=== PATIENT | male | born 1950 | race African-American/Black ===

== ENCOUNTER → 2016-06-26 | Outpatient (CLI) | payer OTHER ==
[~2016-06-26] MED LIST: REGADENOSON INJ 0.4 MG/5 ML DISP.SYRIN IV ONE
--- NOTE | 2016-06-27 10:16 | RADIOLOGY REPORT ---
STRESS TEST REPORT PATIENT NAME: CONCHIS GUNTER ROOM#: DATE OF SERVICE: 06/26/2016 AGE: 65Y ORDER#: [id number] REFERRING MD: SIRI LORD, [facility] PROCEDURE PERFORMED REST/STRESS SINGLE ISOTOPE CARDIOLITE SPECT IMAGING WITH IV LEXISCAN STRESS AND GATED SPECT IMAGING INDICATION For assessment of chest pains. CLINICAL HISTORY This is a 65-year-old male with no known coronary artery disease but has cardiac risk factors of diabetes, hypertension, tobacco and family history of OR. Current symptomatology includes chest pains. PROCEDURE The patient received IV Lexiscan 0.4 mg infused over ten seconds. The resting heart rate was 78 bpm and increased to 105 bpm at end infusion. The resting BP was 106/67 and increased to 145/69 at end infusion. The patient had symptoms of chest pains in the form of pressure, 3-4/5 intensity. Resting 12 lead EKG showed normal sinus rhythm, 78 bpm, first degree AVB, right axis deviation, mild nonspecific STT changes. At end infusion, no increased STT changes were seen. Myocardial perfusion imaging was performed at rest 60 minutes following injection of 11.55 mCi Cardiolite. Ten seconds after the IV Lexiscan injection, the patient was injected with 36.5 mCi of Cardiolite and flushed. Gated post stress tomographic imaging was performed 60 minutes after stress. FINDINGS The overall quality of the study is good. The left ventricular cavity is noted to be normal in size on both the rest and stress studies. There is no evidence of abnormal transient ischemic dilatation of the left ventricle visually, although computer calculated a TID ratio of 1.19. SPECT images showed small, mild, fixed inferior perfusion defect with no reversible ischemia. Gated SPECT images showed normal motion but reduced contraction of the inferior wall. The left ventricular ejection fraction was calculated to be 61%. IMPRESSION: MYOCARDIAL PERFUSION IMAGING IS MILDLY ABNORMAL. THERE IS A MODERATE AREA OF MILD FIXED PERFUSION DEFECT IN THE INFERIOR WALL WITH REDUCED CONTRACTION BUT NORMAL MOTION. THERE IS NO REVERSIBLE ISCHEMIA. OVERALL LEFT VENTRICULAR SYSTOLIC FUNCTION IS NORMAL AT 61% AND THERE WAS REDUCED CONTRACTION IN THE INFERIOR WALL. NO PRIOR STUDIES FOR COMPARISON. INTERPRETING PHYSICIAN: CONSUELO GIBSON M.D. /: SHIRLEY TT: [id number] ID: [id number] /: [id number] TD: [id number] JOB: [id number] cc:Lidia VILLANUEVA NP, [facility] > MARIA ESTHER
== END ==
LOC: RAD 06:11
PROVIDERS: ATTEND Nurse Practitioner Adult Health
DX: R07.9 Chest pain, unspecified (principal); R06.02 Shortness of breath
CPT/HCPCS: 93017; 78452; A9500; J2785; Q9969

== ENCOUNTER 2017-11-15 17:31 | Emergency (ER) | payer OTHER, MEDICARE, MEDICAID ==
[2017-11-15] MEDS ORDERED: ALBUTEROL SULFATE HFA (90 MCG/PUFF) 8 GM MDI (1 MDI/ER DISP) IH PRN (18:26)
--- NOTE | 2017-11-15 18:27 | ER Document Report ---
ED Medical Screen (RME) - General Chief Complaint: Headache Stated Complaint: NOSEBLEED AND HEADACHE Time Seen by Provider: 11/15/17 18:23 Mode of Arrival: Ambulatory Information source: Patient Notes: This is a 67-year-old man with a history of hypertension, hypothyroidism who presents to the emergency room with headaches for 4 months. Patient also states he has had nosebleeds on and off for the past week. He states that he has been taking gabapentin but is been told by different providers different doses so he stopped taking it. He states that he has been taking ibuprofen as well. He states that the last time he saw his primary care doctor 1 week ago, his blood pressure was low so he was taken off his blood pressure medicine ( nifedipine). He does have an appointment with a neurologist in November for the headaches. He does not report any change in the headaches and they are bandlike and they occur daily. He denies any speech problems, weakness, memory issues. The patient called the office today and was told to come to the emergency room. Medications: Gabapentin 300 mg tablets Atorvastatin 10 mg daily Levothyroxine 0.025 mg daily Nifedipine XL 30 mg tablets daily (which was stopped 1 week ago). TRAVEL OUTSIDE OF THE [place] IN LAST 30 DAYS: No - HPI Onset: Other - Past 4 months Quality of pain: Dull Severity: Mild Pain Level: 1 Associated Symptoms: denies: Chest pain, Shortness of breath Exacerbated by: Denies Relieved by: Denies Similar symptoms previously: Yes Recently seen / treated by doctor: Yes - Related Data Smoking: Cigarettes Frequency of alcohol use: None Drug Abuse: None Allergies/Adverse Reactions: No Known Allergies Allergy (Verified 11/15/17 17:32) Past Medical History - General Information source: Patient - Social History Cigarette use (# per day): Yes - Half a pack per day Chew tobacco use (# tins/day): No Frequency of alcohol use: quite 1 year ago Drug Abuse: Marijuana Lives with: Family Family history: None - Past Medical History Cardiac Medical History: Reports: Hx Hypercholesterolemia, Hx Hypertension Neurological Medical History: Reports: Hx Migraine - 2-3 months Renal/ Medical History: Denies: Hx Peritoneal Dialysis Surgical Hx: Negative Review of Systems - Review of Systems Constitutional: denies: Chills, Fever EENT: No symptoms reported Cardiovascular: No symptoms reported Respiratory: No symptoms reported Gastrointestinal: No symptoms reported Genitourinary: No symptoms reported Male Genitourinary: No symptoms reported Musculoskeletal: No symptoms reported Skin: No symptoms reported Hematologic/Lymphatic: No symptoms reported Neurological/Psychological: See HPI Physical Exam - Vital signs Vitals: Temp Pulse Resp BP Pulse Ox 98.3 F 73 18 142/94 H 100 11/15/17 17:40 18 17:40 11/15/17 17:40 11/15/17 17:40 11/15/17 17:40 Notes: Physical exam: GENERAL: 67-year-old man, alert and oriented 3, no acute distress HEAD: Atraumatic, normocephalic. EYES: Pupils equal round and reactive to light, extraocular movements intact, sclera anicteric, conjunctiva are normal. ENT: TMs normal, nares patent, oropharynx clear without exudates. Moist mucous membranes. NECK: Normal range of motion, supple without obvious mass or JVD. LUNGS: Breath sounds clear to auscultation bilaterally and equal. No wheezes rales or rhonchi. HEART: Regular rate and rhythm without murmurs, rubs or gallops. ABDOMEN: Soft, normoactive bowel sounds. No tenderness to palpation. No guarding, no rebound. No masses appreciated. EXTREMITIES: Normal range of motion, no pitting or edema. No clubbing or cyanosis. NEUROLOGICAL: Cranial nerves II through XII grossly intact. Visual esparza are intact. Normal speech, motor is 5/5 and symmetrical, sensory is grossly intact , cerebellar is good, reflexes are symmetrical. PSYCH: Normal mood, normal affect. SKIN: Warm, Dry, normal turgor, no rashes or lesions noted. Course - Vital Signs Vital signs: Temp Pulse Resp BP Pulse Ox 98.3 F 73 18 142/94 H 100 11/15/17 17:40 11/15/17 17:40 11/15/17 17:40 11/15/17 17:40 11/15/17 17:40 Doctor's Discharge - Discharge Clinical Impression: Headache, High blood pressure Condition: Stable Disposition: HOME, SELF-CARE Additional Instructions: As we discussed: 1. Your neurologic exam looks quite good today. I would follow-up with the neurologist as planned. 2. For the headaches, you can take the gabapentin (300 mg): 1 tablet 3 times a day for pain. 3. Because of the nosebleeds, would hold off taking the ibuprofen. 4. As far as the blood pressure: Your blood pressure was 142/94 which is now borderline high blood pressure. I would try taking a half a tablet of your blood pressure medicine (nifedipine) once daily. 5. I think it is important to get a recheck of your blood pressure by your primary care doctor in the next week to see where your blood pressure is. 6. As far as the smoking: I would do your best to try and continue to cut back with the ultimate goal of stopping completely. 7. Can try the albuterol inhaler: 2 puffs every 6 hours for wheezing. Return to the emergency room for any worsening headache, weakness, any concerns you getting worse. Referrals: WENDY MUNSON NP [Primary Care Provider] - Follow up as needed
[2017-11-15 18:35] VITALS: BP 137/115
== END 2017-11-15 18:39 | disposition home or self-care (01) ==
LOC: ER 17:31
DX: R51 Headache (principal); I10 Essential (primary) hypertension; F17.210 Nicotine dependence, cigarettes, uncomplicated; E78.00 Pure hypercholesterolemia, unspecified
CPT/HCPCS: 99283; J3490

== ENCOUNTER 2019-10-21 07:57 | Day surgery (SDC) | payer OTHER, MEDICARE, MEDICAID ==
[~2019-10-21 07:57] MED LIST changes: +CHONDR SU A NA/HYALUR INTRAOC KIT (SURGICARE) ONE; +DORZOLAMIDE HCL 2%/TIMOLOL MALEAT 0.5% OPH SOLN 10 ML OS PRN; +EPINEPHRINE INJ/PF 1 MG/1 ML AMPULE ONE; +KETOROLAC TROMETHAMINE 0.45% 4 DROP/0.4 ML DROPERETTE OS PRN; +LIDOCAINE 1%/PHENYLEPHRINE 1.5% 0.8 ML SYRINGE ONE; +PREDNISOLONE ACETATE 1% OPH SUSP 5 ML OS PRN; -REGADENOSON INJ 0.4 MG/5 ML DISP.SYRIN IV ONE
[2019-10-21] MEDS: TROPICAMIDE 1% OPH SOLN 15 ML OS PRN ×3 (08:45→09:05)
[2019-10-21] MEDS: TETRACAINE HCL 0.5% OPH SOLN 4 ML OS PRN ×3 (08:45→09:24)
[2019-10-21] MEDS: CYCLOPENTOLATE 0.2%/PHENYLEPHRINE 1% OPH SOLN 2 ML OS PRN ×3 (08:45→09:05)
[2019-10-21] MEDS: BESIFLOXACIN HCL 0.6% OPH SUSP 5 ML BOTTLE OS PRN ×3 (08:45→09:41)
[2019-10-21] MEDS ORDERED: FENTANYL CITRATE INJ/PF 100 MCG/2 ML AMPUL ONE (09:12)
[2019-10-21] MEDS ORDERED: MIDAZOLAM 2 MG/2 ML INJ ONE (09:12)
--- NOTE | 2019-10-21 11:20 | Operative Report ---
Operative Report-[facility] Operative Report: DATE OF SURGERY: October 21, 2019 PREOPERATIVE DIAGNOSIS: NUCLEAR CATARACT, LEFT EYE. POSTOPERATIVE DIAGNOSIS: NUCLEAR CATARACT, LEFT EYE. PROCEDURE PERFORMED: PHACOEMULSIFICATION WITH POSTERIOR CHAMBER INTRAOCULAR LENS IMPLANT, LEFT EYE. SURGEON: Blane Roy DO MEDICATIONS AND ANESTHESIA: Versed: IV Versed Tetracaine drops: 1 to 2 drops given as needed COMPLICATION: None INDICATIONS FOR SURGERY: Medical necessity: Best corrected visual acuity worse than 20/40 secondary to cataracts with impairment of ability to carry out needs or desired activities, blurred vision, visual distortion, reduced contrast sensitivity and/or glare with association functional impairment and supporting documentation/testing, and cataracts causing symptomatic impairment of visual functions not corrected with tolerable changes in glasses or contact lenses interfering with activities of daily life. PROCEDURE: Consent: The risks, benefits and alternatives of this procedures was discussed with the patient. The patient read and signed the consent forms, was identified and was seated in the exam chair. IOL: MX 60 E 18.5 IOL Diopters: Phacoemulsification with posterior chamber intraocular lens implant: The face was prepped with 5% povidone iodine solution, and a few drops of 5% povidone iodine solution was instilled into the inferior fornix. A non-fenestrated drape was placed over the eye and the lids were parted with the speculum. A paracentesis was made with a 15 degree blade, and 1% lidocaine MPF followed by viscoelastic was injected into the anterior chamber. A 2.4 mm metal micro- keratome was used to create a temporal clear corneal incision. A circular anterior capsulorrhexis was created, followed by hydro-dissection and hydro- delineation. The phacoemulsification hand piece was inserted and the nucleus was removed with the Phaco chop technique. The irrigation-aspiration hand piece was used to remove the residual cortex, and vacuum the posterior capsule. The capsular bag was inflated and viscoelastic and the above-mentioned IOL was injected into the eye with care to insert both leaning and trailing haptics in the capsular bag. The irrigation/aspiration hand piece was reinserted to remove residual viscoelastic from the capsular bag and anterior chamber. The corneal incision was hydrated, and anterior chamber was inflated with sterile BSS via the paracentesis site, and found to be watertight. Postop medication:1 drop of prednisolone into operative by followed by 1 drop of Cosopt into operative eye followed by 1 drop of Besivance intraoperative by Other:
== END 2019-10-21 10:21 | disposition home or self-care (01) ==
LOC: SC 07:57
PROVIDERS: ATTEND Ophthalmology
DX: H25.12 Age-related nuclear cataract, left eye (principal); Z98.41 Cataract extraction status, right eye; E11.9 Type 2 diabetes mellitus without complications; E78.00 Pure hypercholesterolemia, unspecified; E03.9 Hypothyroidism, unspecified; F17.210 Nicotine dependence, cigarettes, uncomplicated; Z79.899 Other long term (current) drug therapy
CPT/HCPCS: 66984; V2632; J2250; J3490 ×3; J0171; J3010; 142

== ENCOUNTER → 2020-02-09 | Outpatient (CLI) | payer OTHER ==
--- NOTE | 2020-02-09 15:15 | RADIOLOGY REPORT (SQ) ---
EXAM DESCRIPTION: CT LUNG CANCER SCREENING IMAGES COMPLETED DATE/TIME: 02/09/2020 9:27 am REASON FOR STUDY: SMOKER Has the patient had a Chest CT scan within the past year? N Was the patient offered tobacco cessation counseling? N Was the patient engaged in shared decision making for this test? Y Does the patient have signs or symptoms of Lung Cancer? N Is the patient a smoker? Y How many pack years? 50 How many years since quitting smoking? 0 Patients age: 69 COMPARISON: None. TECHNIQUE: Low Dose CT scan performed of the chest without intravenous contrast for purposes of scre ening for lung cancer. Images reviewed with lung, soft tissue and bone windows. Reconstructed coron al and sagittal MPR images reviewed. All images stored on PACS. All CT scanners at this facility use dose modulation, iterative reconstruction, and/or weight based d osing when appropriate to reduce radiation dose to as low as reasonably achievable (ALARA). [facility]: Dose Right [facility]: CareDose [facility]: Dose Right [facility]: Teradose 4D [facility]: [employer] RADIATION DOSE: CT Rad equipment meets quality standard of care and radiation dose reduction techniq ues were employed. CTDIvol: 2.1 mGy. DLP: 87 mGy-cm. mGy. . LIMITATIONS: No technical limitations. FINDINGS: LUNG NODULES: Left lower lobe 3 mm part solid nodule image 286 of series 2. Less than 4 mm calcified granuloma left lower lobe image 369. REMAINING LUNGS AND PLEURA: No pleural effusions or calcifications. No pneumothorax. Left apica l pleural thickening. Mild scarring in the lingula and middle lobe. HILAR AND MEDIASTINAL STRUCTURES: No identified masses. No abnormal nodes. HEART AND VASCULAR STRUCTURES: No aortic aneurysm. No pericardial effusion. No cardiac devices. CORONARY ARTERY CALCIFICATIONS: Marked calcifications. UPPER ABDOMEN: No significant findings. THYROID AND OTHER SOFT TISSUES: No masses. No adenopathy. BONES: No significant finding. OTHER: No other significant findings. IMPRESSION: BENIGN FINDINGS IN THE LUNGS. OTHER FINDINGS ABOVE. LUNGRADS: LUNGRADS: 2 BENIGN APPEARANCE OR BEHAVIOR. NODULES WITH A VERY LOW LIKELIHOOD OF BECOMIN G A CLINICALLY ACTIVE CANCER DUE TO SIZE OR LACK OF GROWTH. MODIFIER: NONE. RECOMMENDATION: Continue annual screening with LDCT in 12 months. COMMENT: CRITERIA: Solid nodule(s): < 6 mm; new < 4 mm. Part solid nodule(s): < 6 mm total diameter on baseline screening. Non solid nodule(s) (GGN): < 20 mm OR ? 20 and unchanged or slowly growing. Category 3 or 4 nodules unchanged for ? 3 months. TECHNICAL DOCUMENTATION: JOB ID: [id number] Quality ID # [id number]: Final reports with documentation of one or more dose reduction techniques (e.g., Au tomated exposure control, adjustment of the mA and/or kV according to patient size, use of iterative reconstruction technique) 2010 [facility] Reading location - IP/workstation name: [email or web address]
== END ==
LOC: RAD 09:09
PROVIDERS: ATTEND Clinical Nurse Specialist Adult Health
DX: Z12.2 Encounter for screening for malignant neoplasm of respiratory organs (principal); F17.210 Nicotine dependence, cigarettes, uncomplicated
CPT/HCPCS: G0297